=== PATIENT | female | born 1950 | race Hispanic/Latino ===

== ENCOUNTER → 2017-02-19 | Outpatient (CLI) | payer OTHER ==
[~2017-02-19] MED LIST: FISH1CAP49 PO; GLUCOSAMINE PO; LATA2.5D2 OU
== END | disposition home or self-care (01) ==
LOC: RAH 07:58
PROVIDERS: ATTEND Internal Medicine Nephrology
DX: Z12.31 Encounter for screening mammogram for malignant neoplasm of breast (principal)
CPT/HCPCS: 77067

== ENCOUNTER → 2018-02-27 | Outpatient (CLI) | payer OTHER | END | disposition home or self-care (01) | LOC: RAH 07:54 | PROVIDERS: ATTEND Nurse Practitioner Family | DX: Z12.31 Encounter for screening mammogram for malignant neoplasm of breast (principal) | CPT/HCPCS: 77067 ==

== ENCOUNTER → 2019-03-26 | Outpatient (CLI) | payer OTHER | END | disposition home or self-care (01) | LOC: RAH 08:20 | PROVIDERS: ATTEND Nurse Practitioner Family | DX: Z12.31 Encounter for screening mammogram for malignant neoplasm of breast (principal) | CPT/HCPCS: 77067 ==

== ENCOUNTER 2019-08-08 06:18 | Emergency (ER) | payer OTHER ==
[2019-08-08] MEDS ORDERED: METHYLPREDNISOLONE SOD SUCC 40MG/ML 1ML ONE (11:26)
[2019-08-08] MEDS ORDERED: ACETAMINOPHEN EXTRA STRENGTH 500 MG TABLET ONE (11:27)
[2019-08-08] MEDS ORDERED: SODIUM CHLORIDE 0.9% 500ML 500 ML IV ONE (11:27)
[2019-08-08] MEDS ORDERED: CEFTRIAXONE SODIUM 2 GM VIAL ONE (11:27)
[2019-08-08] MEDS ORDERED: IOHEXOL-350 75 ML VIAL IV ONE (13:24)
== END 2019-08-08 15:34 | disposition home or self-care (01) ==
LOC: EDH 06:18
DX: U07.1 COVID-19 (principal); J12.89 Other viral pneumonia; Z90.49 Acquired absence of other specified parts of digestive tract; Z90.710 Acquired absence of both cervix and uterus
CPT/HCPCS: 0099U; 36415; 36600; 71045; 71275; 80053; 82550; 82803; 83605 ×2; 83874; 84145; 84484; 85025; 85378; 85610; 85730; 87040 ×2; 87804 ×2; 87880; 93005; 96374; 96375; 99284; J0696; J2920; J7040; Q9967; U0003

== ENCOUNTER → 2020-04-23 | Outpatient (CLI) | payer MEDICARE ==
[~2020-04-23] MED LIST changes: +LATA2.5D14 OU; -LATA2.5D2 OU
== END | disposition home or self-care (01) ==
LOC: RAH 09:55
PROVIDERS: ATTEND Nurse Practitioner Family
DX: Z12.31 Encounter for screening mammogram for malignant neoplasm of breast (principal)
CPT/HCPCS: 77067

== ENCOUNTER → 2021-04-27 | Outpatient (CLI) | payer MEDICARE | END | disposition home or self-care (01) | LOC: RAH 07:28 | PROVIDERS: ATTEND Nurse Practitioner Family | DX: Z12.31 Encounter for screening mammogram for malignant neoplasm of breast (principal) | CPT/HCPCS: 77067 ==

== ENCOUNTER → 2022-06-07 | Outpatient (CLI) | payer MEDICARE | END | disposition home or self-care (01) | LOC: RAH 07:46 | PROVIDERS: ATTEND Internal Medicine | DX: Z12.31 Encounter for screening mammogram for malignant neoplasm of breast (principal) | CPT/HCPCS: 77067 ==

== ENCOUNTER → 2023-06-19 | Outpatient (CLI) | payer MEDICARE | END | disposition home or self-care (01) | LOC: RAH 09:03 | PROVIDERS: ATTEND Family Medicine | DX: Z12.31 Encounter for screening mammogram for malignant neoplasm of breast (principal); R92.323 Mammographic fibroglandular density, bilateral breasts | CPT/HCPCS: 77067 ==

== ENCOUNTER → 2024-06-05 | Outpatient (CLI) | payer MEDICARE ==
[2024-06-05 09:46] LABS: BASOPHILS # (AUTO) 0.07 K/uL (0.00-0.20); EOSINOPHILS # (AUTO) 0.22 K/uL (0.00-0.70); EOSINOPHILS % (AUTO) 3.2 % (0.0-8.0); HEMATOCRIT 44.2 % (36-48); IMMATURE GRANULOCYTE ABSOLUTE 0.01 K/uL (0-1); LYMPHOCYTES # (AUTO) 2.6 K/uL (1.0-4.8); LYMPHOCYTES % (AUTO) 37.6 % (21.0-51.0); MEAN CORPUSCULAR HEMOGLOBIN 31.9 pg (27.0-33.0); MEAN CORPUSCULAR HGB CONC 33.5 g/dL (32.0-36.0); MEAN CORPUSCULAR VOLUME 95.3 fL (79-99); MONOCYTES # (AUTO) 0.5 K/uL (0.1-1.0); MONOCYTES % (AUTO) 7.1 % (3.0-13.0); NEUTROPHILS # (AUTO) 3.6 K/uL (1.8-7.7); PLATELET COUNT (AUTO) 258 K/uL (130-400); RED BLOOD CELL COUNT(AUTO) 4.64 MIL/uL (4.00-5.50); RED CELL DISTRIBUTION WIDTH 12.3 % (11.0-15.5)
[2024-06-05 10:03] LABS: ALBUMIN 3.9 g/dL (3.5-5.0); BILIRUBIN,TOTAL 0.9 mg/dL (0.2-1.0); CREATININE 0.6 mg/dL (0.5-1.0); POTASSIUM 3.9 mmol/L (3.5-5.1); TOTAL PROTEIN, SERUM 8.3 g/dL (6.0-8.3)
== END | disposition home or self-care (01) ==
LOC: LAB 09:01
PROVIDERS: ATTEND Internal Medicine Gastroenterology
DX: R10.30 Lower abdominal pain, unspecified (principal)
CPT/HCPCS: 36415; 80053; 82150; 83690; 85025

== ENCOUNTER → 2024-06-19 | Outpatient (CLI) | payer MEDICARE ==
--- NOTE | 2024-06-19 09:28 | HMCIMG ---
Exam Type: MAMMO SCREENING BILATERAL Clinical Information: ANNUAL SCREENING Comparison: June 19, 2023 Technique: Mammogram with CAD was performed with CC and MLO projections. CAD shows no worrisome regions. FINDINGS: The breasts are heterogeneously dense, which may obscure small masses. No dominant mass or suspicious microcalcification identified. There is no nipple retraction or skin thickening. Benign-appearing calcifications are seen. CAD shows no worrisome regions. IMPRESSION: 1. No mammographic signs of malignancy. 2. Routine follow-up recommended. CATEGORY 2: BENIGN FINDINGS Note: A negative x-ray should not delay biopsy if a dominant or clinically suspicious mass is present, since 8-10% of cancers are not identified by mammography. Dense breasts may obscure an underlying neoplasm.
== END | disposition home or self-care (01) ==
LOC: RAH 07:51
PROVIDERS: ATTEND Family Medicine
DX: Z12.31 Encounter for screening mammogram for malignant neoplasm of breast (principal); R92.333 Mammographic heterogeneous density, bilateral breasts
CPT/HCPCS: 77067

== ENCOUNTER 2024-12-03 03:02 | Emergency (ER) | payer MEDICARE ==
[~2024-12-03] VITALS: Ht 162.6 cm; Wt 63.0 kg
[~2024-12-03 03:02] MED LIST changes: -LATA2.5D14 OU; +LATA2.5D7 OU
--- NOTE | 2024-12-03 03:25 | ERN ---
General Chief Complaint: Headache Stated Complaint: C/O HEADACHE,FACE NECK PAIN X 3 DAYS Time Seen by MD: 03:04 History of Present Illness Initial Comments 73-year-old female who presents for headache. Patient is relatively healthy. She reports that about 48 hours ago she got a right-sided headache on the right parietal and occipital area. It was moderate to severe. NSAID he is onset. Has been worsening of the last couple of days. Now feels pain in the front of her face as well. No vision changes, no vomiting, no dizziness, no other symptoms. No focal neurologic deficits. Denies falls injuries or blood thinners. She does report that she gets regular headaches, but it usually responds well to Tylenol. She has been taking Tylenol and this headache is not improving. Allergies: Coded Allergies: latex (Unverified Allergy, Unknown, 12/16/15) Home Meds Active Scripts Butalb/Acetaminophen/Caffeine (Fioricet) 50 Mg-325 Mg-40 Mg Tab, 1-2 TAB PO QID PRN for headache for 10 Days, #30 TAB Prov:SHELLY PERALTA DO 12/03/24 Reported Medications [Glucosamine] No Conflict Check, 1 TAB PO BID 12/16/15 [place]-3 Fatty Acids/Fish Oil (Fish Oil 1,000 mg Capsule) 1 Each Capsule, 2 EACH PO NOON, CAP 12/16/15 Latanoprost (Latanoprost) 2.5 Ml Drops, 1 DROP OU HS, DROP 12/16/15 Past Medical History Past Medical History: Arthritis, Diabetes-Type II, High Cholesterol, Other Medical History Other: GLAUCOMA Past Surgical History: Appendectomy, Hysterectomy, Other Surgical History Other: BLADDER LIFT; EYE SX ROS Dictation CONSTITUTIONAL: No chills, no fever, no weakness, no diaphoresis, no malaise. HEAD/FACE: No signs of trauma. EENT: No eye pain, no blurred vision, no tearing, no double vision, no ear pain, no ear discharge, no nose pain, no nasal congestion, no throat pain, no throat swelling, no mouth pain. RESPIRATORY: No cough, no orthopnea, no SOB, no stridor, no wheezing. CARDIOVASCULAR: No chest pain, no edema, no palpitations, no syncope. GASTROINTESTINAL/ABDOMINAL: No abdominal pain, no constipation, no diarrhea, no nausea, no vomiting. GENITOURINARY: No abnormal discharge, no dysuria, no frequent urination, no hematuria. No complaints of pain in the genitals. MUSCULOSKELETAL: No back pain, no gout, no joint pain, no joint swelling, no muscle pain, no muscle stiffness, no neck pain. INTEGUMENTARY: No change in color, no change in hair/nails, no dryness, no lesion, no lumps, no rash. NEUROLOGICAL/PSYCH: Headache HEMATOLOGIC/LYMPHATIC: Not anemic, no history of blood clots, no apparent bleeding, no bruising, glands not swollen. All Systems Negative, Except as Noted. Physical Exam Physical Exam Dictation VITAL SIGNS: Reviewed. GENERAL APPEARANCE: Alert, oriented x3, no acute distress. HEAD AND FACE: Non-traumatic. EYES: PERRL, pink conjunctivas, eyelid no trauma, anterior chamber clear. EARS: Pinnas intact and no signs of trauma or erythema. Ear canals clear and no discharge. TMs no erythema. NOSE: No discharge, no bleeding. OROPHARYNX: Mouth normal, teeth no caries, tongue pink. Pharynx clear, no erythema. Tonsils no exudates, no abscesses noted. Mucous membrane moist. NECK: Supple, non-tender, no thyromegaly, no masses, no JVD, no bruits. BREAST: Deferred. CHEST: No tenderness, no crepitus, no paradoxical movement, no retractions. LUNGS: Clear, well-ventilated, symmetric, no rales, no wheezing, no rhonchi, no stridor, good breath sounds bilaterally. HEART: Regular rate, regular rhythm, no murmur, no gallops. VASCULAR: No peripheral edema. ABDOMEN: Soft, positive bowel sounds, nondistended, no guarding, nontender, no rebound, no masses no hepatomegaly, no splenomegaly, no Bhat's sign, no hernias. RECTAL: Deferred. GENITAL: Deferred. NEUROLOGICAL: Normal speech, gross motor function intact, gross sensory function intact. MUSCULOSKELETAL: Neck nontender, full range of motion, back nontender, full range of motion. EXTREMITIES: Nontender, full range of motion. SKIN: Color pink, dry, no turgor, no rash, no lacerations, no abrasions, no contusions. LYMPHATICS: Deferred. Results Laboratory and Microbiology Lab and Micro Result Laboratory Tests Test 12/03/24 03:46 White Blood Count 7.9 K/uL (4.8-10.8) Red Blood Count 4.63 MIL/uL (4.00-5.50) Hemoglobin 14.6 g/dL (12.0-16.0) Hematocrit 44.1 % (36-48) Mean Corpuscular Volume 95.2 fL (79-99) Mean Corpuscular Hemoglobin 31.5 pg (27.0-33.0) Mean Corpuscular Hemoglobin Concent 33.1 g/dL (32.0-36.0) Red Cell Distribution Width 12.1 % (11.0-15.5) Platelet Count 229 K/uL (130-400) Mean Platelet Volume 9.6 fL (7.5-10.5) Immature Granulocyte % (Auto) 0.3 % (0-1) Neutrophils (%) (Auto) 50.6 % (40.0-77.0) Lymphocytes (%) (Auto) 37.8 % (21.0-51.0) Monocytes (%) (Auto) 7.5 % (3.0-13.0) Eosinophils (%) (Auto) 2.7 % (0.0-8.0) Basophils (%) (Auto) 1.1 % (0.0-5.0) Neutrophils # (Auto) 4.0 K/uL (1.8-7.7) Lymphocytes # (Auto) 3.0 K/uL (1.0-4.8) Monocytes # (Auto) 0.6 K/uL (0.1-1.0) Eosinophils # (Auto) 0.21 K/uL (0.00-0.70) Basophils # (Auto) 0.09 K/uL (0.00-0.20) Absolute Immature Granulocyte (auto 0.02 K/uL (0-1) Nucleated Red Blood Cells 0.0 % (0.0-0.19) Sodium Level 138 mmol/L (136-145) Potassium Level 3.5 mmol/L (3.5-5.1) Chloride Level 100 mmol/L (101-111) L Carbon Dioxide Level 29 mmol/L (21-32) Blood Urea Nitrogen 10 mg/dL (7-18) Creatinine 0.4 mg/dL (0.5-1.0) L Glomerular Filtration Rate Calc 104 mL/min (>90) Random Glucose 149 mg/dL (70-105) H Total Calcium 8.8 mg/dL (8.5-10.1) Total Creatine Kinase 113 U/L (21-232) # Troponin I High Sensitivity 5.7 ng/L (4-50) MDM CC: JIM Historian: patient Comorbidities: cataract surgery in the past Limitations: denies Ddx: migraine JIM, tension, SAH, tumor, bleed, stroke, HTN, T.A., glaucoma, other VSS Neuro exam normal, CN intact, eye exam normal. CT head unremarkable. Labs unremarkable. Based on workup and imaging and exam, low suspsicion for life threat, stroke, SAH, tumor, etc. Appears to be migraine or other benign JIM. Treatment in ED: IVF, compazine, benadryl, toradol. Re-evaluation: pain improved. family centered specialist intact. Plan: DC w/ fioricet prescription, PCP f/u as needed. ED Course Orders Procedure Category Date Status Time Cardiac Panel LAB 12/03/24 Complete 03:22 Cbc With Differential LAB 12/03/24 Complete 03:22 Basic Metabolic Panel LAB 12/03/24 Complete 03:22 Lactated Ringers PHA 12/03/24 Complete 1000ml (Lactated 03:30 Ct Head/Brain W/O CT 12/03/24 Resulted Contrast 03:22 Ketorolac PHA 12/03/24 Complete Tromethamine 15mg/Ml 03:30 Prochlorperazine PHA 12/03/24 Complete 10mg/2ml Inj 03:30 Diphenhydramine Hcl PHA 12/03/24 Complete (Benadryl Inj) 03:30 Current Medications Medications (Trade) Dose Ordered Sig/Shari Route PRN Reason Start Time Stop Time Status Last Admin Dose Admin Diphenhydramine HCl (BENAdryl INJ) 12.5 mg ONCE ONCE IV 12/03/24 03:30 12/03/24 03:31 DC 12/03/24 03:38 Ketorolac Tromethamine (toRADol) 15 mg ONCE ONCE IV 12/03/24 03:30 12/03/24 03:31 DC 12/03/24 03:38 Lactated Ringer's 1,000 ml @ 0 mls/hr ONCE ONCE IV 12/03/24 03:30 12/03/24 03:31 DC 12/03/24 03:38 Prochlorperazine Edisylate (Compazine 10mg/ 2ml Inj) 2.5 mg ONCE ONCE IV 12/03/24 03:30 12/03/24 03:31 DC 12/03/24 03:38 Vital Signs Date Time Temp Pulse Resp B/P (MAP) Pulse Ox O2 Delivery O2 Flow Rate FiO2 12/03/24 05:24 98.4 80 15 115/61 96 Room Air* 0 21 12/03/24 03:47 98.4 78 15 125/66 99 Room Air* 0 21 12/03/24 03:06 98.1 76 20 141/83 96 Room Air DX & DISP Disposition: Discharge Departure Impression: Primary Impression: Migraine headache Condition: Stable Scripts Butalb/Acetaminophen/Caffeine (Fioricet) 50 Mg-325 Mg-40 Mg Tab 1-2 TAB PO QID PRN for headache for 10 Days, #30 TAB Prov: SHELLY PERALTA DO 12/03/24 Additional Instructions: Your symptoms are most consistent with a migraine headache. The CT scan of your brain is unremarkable. Your labwork is unremarkable. You received migraine medications here in the ED (IV fluids, IV toradol, IV compazine, IV diphenhydramine)> I've prescribed Fioricet, which is a migraine medication to use as needed when you have a headache. Take 1-2 tabs every 6 hours as needed. Stay hydrated. Sleep well. These activities can reduce migraines. Please follow up with your primary doctor as needed. Return to the ED as needed. Referrals: EVELYN TELLEZ M.D. (PCP) SHELLY PERALTA DO Dec 03, 2024 03:25
[2024-12-03] MEDS: PROCHLORPERAZINE 10MG/2ML INJ IV ONE (03:38)
[2024-12-03] MEDS: LACTATED RINGERS 1000ML 1,000 ML IV ONE (03:38)
[2024-12-03 04:26] LABS: IMMATURE GRANULOCYTE ABSOLUTE 0.02 K/uL (0-1); NUCLEATED RED BLOOD CELLS 0.0 % (0.0-0.19); PLATELET COUNT (AUTO) 229 K/uL (130-400); RED BLOOD CELL COUNT(AUTO) 4.63 MIL/uL (4.00-5.50); RED CELL DISTRIBUTION WIDTH 12.1 % (11.0-15.5); WHITE BLOOD COUNT (AUTO) 7.9 K/uL (4.8-10.8)
[2024-12-03 04:33] LABS: CREATININE 0.4 mg/dL (0.5-1.0); GLOMERULAR FILTR. RATE CALC 104.0 mL/min (>90); GLUCOSE,RANDOM 149.0 mg/dL (70-105); SODIUM SERUM 138.0 mmol/L (136-145); UREA NITROGEN, BLOOD 10.0 mg/dL (7-18)
[2024-12-03 04:40] LABS: CREATINE KINASE, TOTAL 113.0 U/L (21-232)
[2024-12-03] MEDS ORDERED: FIORIT PO (04:43)
--- NOTE | 2024-12-03 04:58 | HMCIMG ---
EXAM: Non-contrast CT examination of the Brain CLINICAL HISTORY: Headache. TECHNIQUE: Thin collimated axial CT images of the brain were obtained with sagittal and coronal reformatted images also submitted. CT scan is done according to ALARA (As Low as Reasonably Achievable). CONTRAST USED: None. COMPARISON: None provided. FINDINGS: No acute intracranial abnormality is present. No acute cortical infarction, hemorrhage, mass, or mass effect. Mild generalized brain atrophy and chronic microvascular ischemic white matter disease. No hydrocephalus or abnormal extra-axial fluid collections. The posterior fossa is unremarkable. The skull base and calvarium are intact. Mild hyperostosis frontalis interna. Status post bilateral maxillary antrostomy and ethmoid ostomy. Scattered mucosal disease in the bilateral maxillary sinuses. The remaining paranasal sinuses are clear. The mastoid air cells are clear bilaterally. IMPRESSION: No acute intracranial abnormality is present. Mild generalized brain atrophy and chronic microvascular ischemic white matter disease. /[facility]
[2024-12-03 05:24] VITALS: BP 115/61; PULSE 80; RESP 15; TEMP 98.4; O2SAT 96
== END 2024-12-03 05:26 | disposition home or self-care (01) ==
LOC: EDH 03:02
DX: G43.909 Migraine, unspecified, not intractable, without status migrainosus (principal); E11.9 Type 2 diabetes mellitus without complications; E78.00 Pure hypercholesterolemia, unspecified; M19.90 Unspecified osteoarthritis, unspecified site; H40.9 Unspecified glaucoma; Z91.040 Latex allergy status; Z79.899 Other long term (current) drug therapy; Z90.49 Acquired absence of other specified parts of digestive tract; Z90.710 Acquired absence of both cervix and uterus; Z98.49 Cataract extraction status, unspecified eye
CPT/HCPCS: 99285; 96374; 70450; 96375; 82550; 84484; 80048; 85025; 36415; J1885; J1200; J7120; J0780

== ENCOUNTER → 2025-01-23 | Outpatient (CLI) | payer MEDICARE ==
[~2025-01-23] MED LIST changes: +FIORIT PO
--- NOTE | 2025-01-23 14:13 | HMCIMG ---
BILATERAL BREAST ULTRASOUND: CLINICAL HISTORY: Patient feels lump in the right respiratory year-old region. Finding: Real-time examination of the both breasts demonstrates homogeneous echotexture throughout both the breasts in the area of interest in right retroareolar region there is a hypoechoic lesion measuring 0.6 x 0.4 x 0.6 cm. Otherwise both breasts with no lesion seen. There is benign-appearing right axillary lymph node.. IMPRESSION: Right retroareolar region there is a hypoechoic lesion measuring 0.6 x 0.4 x 0.6 cm. I would recommend mammogram with tomography for further evaluation. This is also amenable for CT-guided biopsy. FINAL ASSESSMENT: ACR: BI-RAD -0. Incomplete: need additional imaging evaluation.
== END | disposition home or self-care (01) ==
LOC: RAH 10:53
PROVIDERS: ATTEND Family Medicine
DX: N64.4 Mastodynia (principal); N64.82 Hypoplasia of breast

== ENCOUNTER 2025-01-29 06:08 | Emergency (ER) | payer MEDICARE ==
[~2025-01-29] VITALS: Ht 162.6 cm; Wt 62.6 kg
--- NOTE | 2025-01-29 06:19 | ERN ---
General Chief Complaint: Flu Symptoms Stated Complaint: FLU LIKE SYMPTOMS Time Seen by MD: 06:10 Source: patient History of Present Illness Initial Comments Patient is a 74-year-old female coming in complaining of body aches and dizziness. Per patient her has been sick with what she believes might the been the flu. Symptoms began two days ago. Allergies: Coded Allergies: latex (Unverified Allergy, Unknown, 12/16/15) Home Meds Active Scripts Butalb/Acetaminophen/Caffeine (Fioricet) 50 Mg-325 Mg-40 Mg Tab, 1-2 TAB PO QID PRN for headache for 10 Days, #30 TAB Prov:SHELLY PERALTA DO 12/03/24 Reported Medications [Glucosamine] No Conflict Check, 1 TAB PO BID 12/16/15 [place]-3 Fatty Acids/Fish Oil (Fish Oil 1,000 mg Capsule) 1 Each Capsule, 2 EACH PO NOON, CAP 12/16/15 Latanoprost (Latanoprost) 2.5 Ml Drops, 1 DROP OU HS, DROP 12/16/15 Past Medical History Past Medical History: Arthritis, Diabetes-Type II, High Cholesterol, Other Medical History Other: GLAUCOMA Past Surgical History: Appendectomy, Hysterectomy, Other Surgical History Other: BLADDER LIFT; EYE SX ROS Dictation CONSTITUTIONAL: chills, no fever, no weakness, no diaphoresis, malaise. HEAD/FACE: No signs of trauma. EENT: No eye pain, no blurred vision, no tearing, no double vision, no ear pain, no ear discharge, no nose pain, no nasal congestion, no throat pain, no throat swelling, no mouth pain. RESPIRATORY: No cough, no orthopnea, no SOB, no stridor, no wheezing. CARDIOVASCULAR: No chest pain, no edema, no palpitations, no syncope. GASTROINTESTINAL/ABDOMINAL: No abdominal pain, no constipation, no diarrhea, no nausea, no vomiting. GENITOURINARY: No abnormal discharge, no dysuria, no frequent urination, no hematuria. No complaints of pain in the genitals. MUSCULOSKELETAL: No back pain, no gout, no joint pain, no joint swelling, no muscle pain, no muscle stiffness, no neck pain. INTEGUMENTARY: No change in color, no change in hair/nails, no dryness, no lesion, no lumps, no rash. NEUROLOGICAL/PSYCH: No anxiety, not depressed, no emotional problem, no headache, no numbness, no pre-existing deficit, no history of seizures, no tremors, no weakness. HEMATOLOGIC/LYMPHATIC: Not anemic, no history of blood clots, no apparent bleeding, no bruising, glands not swollen. All Systems Negative, Except as Noted. Physical Exam Physical Exam Dictation VITAL SIGNS: Reviewed. GENERAL APPEARANCE: Alert, oriented x3, no acute distress, obese. HEAD AND FACE: Non-traumatic. EYES: PERRL, pink conjunctivas, eyelid no trauma, anterior chamber clear. EARS: Pinnas intact and no signs of trauma or erythema. Ear canals clear and no discharge. TMs no erythema. NOSE: No discharge, no bleeding. OROPHARYNX: Mouth normal, teeth no caries, tongue pink. Pharynx clear, no erythema. Tonsils no exudates, no abscesses noted. Mucous membrane moist. NECK: Supple, non-tender, no thyromegaly, no masses, no JVD, no bruits. BREAST: Deferred. CHEST: No tenderness, no crepitus, no paradoxical movement, no retractions. LUNGS: Clear, well-ventilated, symmetric, no rales, no wheezing, no rhonchi, no stridor, good breath sounds bilaterally. HEART: Regular rate, regular rhythm, no murmur, no gallops. VASCULAR: No peripheral edema. ABDOMEN: Soft, positive bowel sounds, nondistended, no guarding, nontender, no rebound, no masses no hepatomegaly, no splenomegaly, no Bhat's sign, no hernias. RECTAL: Deferred. GENITAL: Deferred. NEUROLOGICAL: Normal speech, gross motor function intact, gross sensory function intact. MUSCULOSKELETAL: Neck nontender, full range of motion, back nontender, full range of motion. EXTREMITIES: Nontender, full range of motion. SKIN: Color pink, dry, no turgor, no rash, no lacerations, no abrasions, no contusions. LYMPHATICS: Deferred. Results Laboratory and Microbiology Lab and Micro Result Laboratory Tests Test 01/29/25 06:18 01/29/25 06:35 01/29/25 06:37 Influenza Type A Antigen Positive For Type A Influenza Type B Antigen Negative For Type B SARS-CoV-2, RNA, NAAT NEGATIVE SARS CoV-2 White Blood Count 7.5 K/uL (4.8-10.8) Red Blood Count 4.75 MIL/uL (4.00-5.50) Hemoglobin 14.9 g/dL (12.0-16.0) Hematocrit 43.9 % (36-48) Mean Corpuscular Volume 92.4 fL (79-99) Mean Corpuscular Hemoglobin 31.4 pg (27.0-33.0) Mean Corpuscular Hemoglobin Concent 33.9 g/dL (32.0-36.0) Red Cell Distribution Width 12.0 % (11.0-15.5) Platelet Count 195 K/uL (130-400) Mean Platelet Volume 9.2 fL (7.5-10.5) Nucleated Red Blood Cells 0.0 % (0.0-0.19) Sodium Level 133 mmol/L (136-145) L Potassium Level 3.2 mmol/L (3.5-5.1) L Chloride Level 96 mmol/L (101-111) L Carbon Dioxide Level 25 mmol/L (21-32) Blood Urea Nitrogen 11 mg/dL (7-18) Creatinine 0.6 mg/dL (0.5-1.0) Glomerular Filtration Rate Calc 94 mL/min (>90) Random Glucose 146 mg/dL (70-105) H Total Calcium 8.7 mg/dL (8.5-10.1) Urine Color YELLOW (YELLOW) Urine Appearance CLEAR (CLEAR) Urine pH 6.5 (5.0-8.0) Urine Specific [place]em 1.023 (1.001-1.031) Urine Protein 30 mg/dL (NEGATIVE) H Urine Glucose (UA) NEGATIVE mg/dL (NEGATIVE) Urine Ketones 60 mg/dL (NEGATIVE) H Urine Occult Blood NEGATIVE (NEGATIVE) Urine Nitrate NEGATIVE (NEGATIVE) Urine Bilirubin NEGATIVE mg/dL (NEGATIVE) Urine Urobilinogen 0.2 mg/dL (0.2-1.0) Urine Leukocyte Esterase NEGATIVE [place]mita/uL Urine RBC 6-10 /HPF (0-1) H Urine WBC 2-5 /HPF (0-1) H Urine Squamous Epithelial Cells MOD /HPF (0-2) Urine Bacteria None /HPF (None Seen) Labs Reviewed?: Yes MDM MDM: Differential diagnosis: Rationale: Tests considered and ordered secondary to shared decision making include: Previous outside records reviewed: Old ER visits. Risk of complication and/or morbidity or mortality of patient management: None Medications-Per medication reconciliation Need for hospitalization: Patient does not meet criteria for hospitalization. Need for emergency major/minor surgery: No There are no social concerns with this patient. Prescription drug management Prescriptions will include symptomatic care Patient's prior external medical records from other ER visits were reviewed by me as indicated. Prior testing and results from previous visits were reviewed. Prior tests were taken into account with medical decision making and resource utilization, independent historian/historians were used to obtain complete medical history. I independently interpreted the test that were performed, results were reviewed by me and considered findings on radiology if ordered. Medical management and examination interpretation discussions were had by me with other qualified healthcare professionals as indicated for the patient's care. Patient handed off at shift change pending lab results, 74-year-old female with a flu-like symptoms positive for flu a, workup appears stable vital signs have improved patient offered observation admission for IV hydration but refused and wants to go home instead prescriptions given patient is stable for discharge and outpatient treatment advised to return if worse in any way and agrees. ED Course Orders Procedure Category Date Status Time Cbc Without LAB 01/29/25 Complete Differential 06:16 Covid Rna Naat LAB 01/29/25 Complete 06:16 Influenza Type A & B, LAB 01/29/25 Complete Rapid 06:16 Basic Metabolic Panel LAB 01/29/25 Complete 06:16 0.9%Nacl 1000ml (Ns PHA 01/29/25 Complete 1000ml) 06:30 Urinalysis LAB 01/29/25 Complete W/Microscopic 06:16 Current Medications Medications (Trade) Dose Ordered Sig/Shari Route PRN Reason Start Time Stop Time Status Last Admin Dose Admin Sodium Chloride 1,000 ml @ 0 mls/hr ONCE ONCE IV 01/29/25 06:30 01/29/25 06:32 DC 01/29/25 06:38 Vital Signs Date Time Temp Pulse Resp B/P (MAP) Pulse Ox O2 Delivery O2 Flow Rate FiO2 01/29/25 07:49 100.9 79 18 138/47 95 Room Air* 0 21 01/29/25 06:10 99.7 95 20 142/92 95 Room Air 0 DX & DISP Disposition: Discharge Departure Impression: Primary Impression: Influenza A Additional Impression: Acute dehydration Condition: Stable Scripts Azithromycin (Azithromycin) 250 Mg Tablet 250 MG PO AD for cough for 5 Days, #6 TAB Prov: RUKHSANA,CHRISTOPHER MD 01/29/25 Oseltamivir Phosphate (Tamiflu) 75 Mg Cap 75 MG PO BID for 5 Days, #10 CAP Prov: DEEPA MILIAN MD 01/29/25 Referrals: EVELYN TELLEZ M.D. (PCP) ABELARDO SEPULVEDA MD Jan 29, 2025 06:19 DEEPA MILIAN MD Jan 29, 2025 08:48
[2025-01-29] MEDS: 0.9%NACL 1000ML 1,000 ML IV ONE (06:38)
[2025-01-29 06:40] LABS: NUCLEATED RED BLOOD CELLS 0.0 % (0.0-0.19); PLATELET COUNT (AUTO) 195.0 K/uL (130-400); RED BLOOD CELL COUNT(AUTO) 4.75 MIL/uL (4.00-5.50); RED CELL DISTRIBUTION WIDTH 12.0 % (11.0-15.5); WHITE BLOOD COUNT (AUTO) 7.5 K/uL (4.8-10.8)
[2025-01-29 06:49] LABS: INFLUENZA TYPE B Negative For Type B (NEGATIVE)
[2025-01-29 06:53] LABS: CREATININE 0.6 mg/dL (0.5-1.0); GLOMERULAR FILTR. RATE CALC 94.0 mL/min (>90); GLUCOSE,RANDOM 146.0 mg/dL (70-105); SODIUM SERUM 133.0 mmol/L (136-145); UREA NITROGEN, BLOOD 11.0 mg/dL (7-18)
[2025-01-29 07:01] LABS: APPEARANCE,URINE CLEAR (CLEAR); GLUCOSE, URINE (UA) NEGATIVE (NEGATIVE); LEUKOCYTE ESTERASE ,URINE NEGATIVE Leu/uL (NEGATIVE); NITRATE,URINE NEGATIVE (NEGATIVE); OCCULT BLOOD,URINE NEGATIVE (NEGATIVE)
[2025-01-29 07:09] LABS: SARS-CoV-2, RNA, NAAT NEGATIVE SARS CoV-2 (NEGATIVE)
[2025-01-29 07:22] LABS: INFLUENZA TYPE A Positive For Type A (NEGATIVE)
[2025-01-29 07:34] LABS: SQUAMOUS EPITHELIAL CELL,UR MOD /HPF (0-2)
[2025-01-29] MEDS ORDERED: OSEL75 PO (08:48)
[2025-01-29] MEDS ORDERED: AZIT250T9 PO (08:48)
[2025-01-29 09:09] VITALS: BP 124/61; PULSE 75; RESP 18; TEMP 100.9; O2SAT 96
== END 2025-01-29 09:14 | disposition home or self-care (01) ==
LOC: EDH 06:08
DX: J10.1 Influenza due to other identified influenza virus with other respiratory manifestations (principal); E86.0 Dehydration; E11.9 Type 2 diabetes mellitus without complications; E78.00 Pure hypercholesterolemia, unspecified; M19.90 Unspecified osteoarthritis, unspecified site; Z91.040 Latex allergy status; Z79.899 Other long term (current) drug therapy; Z90.49 Acquired absence of other specified parts of digestive tract; Z90.710 Acquired absence of both cervix and uterus; Z20.822 Contact with and (suspected) exposure to COVID-19
CPT/HCPCS: 99283; 87635; 80048; 85027; 87804 ×2; 81001; 36415; J7030